=== PATIENT | male | born 1965 | race Caucasian/White ===

== ENCOUNTER 2020-10-18 11:19 | Emergency (ER) | payer OTHER, SELFPAY ==
--- NOTE | ~2020-10-18 | XR_ITS ---
EXAMINATION: XR RIBS, LEFT CLINICAL INFORMATION: Pain. Lifting injury. COMPARISON: None TECHNIQUE: 3 views of the left ribs and one view of the chest were obtained. FINDINGS: Lungs are clear. No consolidation, pneumothorax, or pleural effusion. The cardiomediastinal silhouette and pulmonary vasculature are normal. Osseous structures are unremarkable. Ribs are intact. No fractures are identified. XR/XR ribs LT min 3V w CXR1V IMPRESSION: Unremarkable examination.
[2020-10-18 11:32] VITALS: BP 164/91; PULSE 62; RESP 16; TEMP 36.4; O2SAT 99; BMI 31.3
--- NOTE | 2020-10-18 12:22 | ED_ITS ---
HPI - General Adult General Chief complaint: General Medical Stated complaint: RIB PAIN Time Seen by Provider: 10/18/20 11:36 Source: patient Mode of arrival: ambulatory Limitations: no limitations History of Present Illness HPI narrative: 55-year-old male presenting to the ED with complaints of left lateral posterior rib cage pain for the past 4 days which started after he was lifting a heavy entertainment center that him and his bought for themselves. He denies any dizziness, headaches, change in vision, nausea/vomiting, chest pain, shortness of breath, dyspnea on exertion, orthopnea, palpitations, abdominal pain, recent falls or rashes or any other symptoms complaints or concerns at this time. MD complaint: Ribcage pain Onset (ago): day(s) (Four days ago) Location: chest (Left posterior lateral rib cage pain) Radiation: non-radiation Severity: moderate Quality: sharp Pain Consistency: constant Relieving factors: none Exacerbating factors: other (Palpation or movement) Associated symptoms: denies other symptoms Treatments prior to arrival: none Related Data Previous Rx's Medication Instructions Recorded cyclobenzaprine 10 mg tablet 10 mg PO Q8H #10 tab 10/18/20 Allergies Allergy/AdvReac Type Severity Reaction Status Date / Time No Known Allergies Allergy Unverified 10/31/19 14:58 Review of Systems Review of Systems: Constitutional : No Weight loss, No Fever, No Chills, No Night Sweats, No Fatigue, NoMalaise ENT/Mouth: No ear pain, No sore throat, No Difficulty swallowing Cardiovascular : No Chest Pain, No SOB, No Dyspnea on Exertion, No Orthopnea, NoEdema, No Palpitations Respiratory : No Cough, No Sputum, No Wheezing, No Dyspnea Gastrointestinal : No Nausea, No Vomiting, No abdominal pain, No Diarrhea, No blood streaked emesis, No coffee-ground emesis, No gross hematemesis, No blood streak stool, No gross hematochezia, No Melena Genitourinary : No irregular bleeding, No Dysuria, No Urinary Frequency, No Hematuria,No Urinary Incontinence, No Urgency, No Flank Pain Musculoskeletal : Positive left lateral posterior rib cage pain, No joint pain, No Myalgias, No Joint Swelling Skin : No Skin Lesions, No rash Neuro : No Weakness, No Numbness, No Paresthesias, No Loss of Consciousness, NoDizziness, No Headache Psych : No Social Issues, Heme/Lymph: No Bruising, No Bleeding,No Lymphadenopathy Endocrine : No Polyuria, No Polydipsia, No Temperature Intolerance Yes all other systems are reviewed and are negative [facility] Past Medical History Attestation statement: The following information was validated with the patient. Medical History No known health problems Social History Social History Advance Directives: Yes Advance Directives Information Provided: Yes Advance Directives on File: No Physical Exam Vital Signs: Vital Signs: Last Vital Signs Temp 97.5 F 10/18/20 11:32 Pulse 62 10/18/20 11:32 Resp 16 10/18/20 11:32 BP 164/91 H 10/18/20 11:32 Pulse Ox 99 10/18/20 11:32 Body Mass Index 31.3 vital signs have been reviewed as normal and appeared to be correct. Blood pressure hypertensive 164/91 Heart rate normal. Respiration rate normal. Temperature normal. Oxygen saturation normal. Appearance: Alert. Oriented X3. No acute distress. Head: Normal external exam. Normocephalic. Atraumatic. Eyes: PERRLA. EOMI. Conjunctiva and sclera normal. Eyelids normal. ENT: Pharynx normal. Uvula midline. Moist mucous membranes. Neck: Normal inspection. Neck supple. FROM. No adenopathy. No meningeal signs. CVS: Normal heart rate and rhythm. Heart sound normal. Pulses normal throughout. No murmurs/rales/gallops. Respiratory: No respiratory distress. Painless inspiration. Breath sounds normal. No wheezes/rales/rhonchi noted. Chest moderate tenderness to palpation to the left lateral posterior rib cage lower aspect around the 9//12 ribs. No flail chest. No crepitus. No rashes noted. No accessory muscle usage noted or decreased air movement noted. Back: Full range of motion noted. No rashes/lesion/induration/fluctuance or signs of infection noted. Skin: Skin warm and dry. Normal skin color. Normal skin turgor. No ra shes/lesions/lacerations noted. Extremities: Extremities exhibit normal range of motion. Extremities nontender. Neuro: Oriented X 3. No motor deficit. No sensory deficit. Reflexes normal. Normal steady gait. No focal neuro deficits noted. Vascular: + radial pulses/+ 2 distal pedal pulses/+2 dorsalis pedis b/l. Normal cap refill. No cyanosis noted to upper extremity nails and lower extremity toes nails. Course Course Course Narrative: 55-year-old male presenting to the ED with complaints of left lateral posterior rib cage pain for the past 4 days which started after he was lifting a heavy entertainment center that him and his bought for themselves. X-ray obtained within normal limits no acute processes are noted. Medical Decision Making Medical Records Medical records reviewed: Yes I reviewed the patient's medical records. Imaging Data Left ribs and PA chest x-ray: Attestation: I personally reviewed and interpreted this imaging study as follows: Radiologist's impression: FINDINGS: Lungs are clear. No consolidation, pneumothorax, or pleural effusion. The cardiomediastinal silhouette and pulmonary vasculature are normal. Osseous structures are unremarkable. Ribs are intact. No fractures are identified. XR/XR ribs LT min 3V w CXR1V IMPRESSION: Unremarkable examination. Discharge Plan Discharge Clinical Impression: Muscle strain Patient Disposition: Home, Self-Care Instructions: Muscle Spasm (ED) Prescriptions: New cyclobenzaprine 10 mg tablet 10 mg PO Q8H Qty: 10 RF: 0 Referrals: Tricia Meek MD [Primary Care Provider] - 2 days Print Language: Greek
== END 2020-10-18 12:47 | disposition home or self-care (01) ==
PROVIDERS: Emergency Provider Emergency Medicine; PCP Internal Medicine
DX: S29.011A Strain of muscle and tendon of front wall of thorax, initial encounter (principal); R07.81 Pleurodynia; X50.0XXA Overexertion from strenuous movement or load, initial encounter; Y93.9 Activity, unspecified; Y92.9 Unspecified place or not applicable; Y99.9 Unspecified external cause status; Z79.899 Other long term (current) drug therapy
CPT/HCPCS: 71101; 99283